=== PATIENT | male | born 2000 | race Caucasian/White ===

== ENCOUNTER 2022-04-20 15:15 | Emergency (ER) | payer OTHER ==
[2022-04-20 15:34] VITALS: BP 122/67; PULSE 80; RESP 20
[2022-04-20] MEDS ORDERED: TOPICAL SKIN ADHESIVE 1 EACH AMP TOPICAL ONE (15:42)
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
[2022-04-20 15:53] VITALS: TEMP 98.3
== END 2022-04-20 16:06 | disposition home or self-care (01) ==
LOC: EC 15:15
DX: S01.81XA Laceration without foreign body of other part of head, initial encounter (principal); W22.8XXA Striking against or struck by other objects, initial encounter
CPT/HCPCS: 12011; 99282